=== PATIENT | female | born 1980 | race Caucasian/White ===

== ENCOUNTER → 2021-01-24 | Outpatient (CLI) | payer BC ==
[~2021-01-24] MED LIST: BCP TD; FOLIC ACID 11 MG/TA1 PO; IBU600 MG PO; LOVENOX 3030 MG/0.3 SQ; MOTRIN 600600 MG/TAB PO; NO HOME MEDICATIONS; PERCOCET 325 MG1 TA2 PO; PRENATAL VITAMI1 TAB PO; PRENATAL1 TA7 PO; SENOKOT S 50 MG1 TAB PO; VALIUM5 MG PO
== END ==
LOC: MC.RAD 10:58
DX: N63.20 Unspecified lump in the left breast, unspecified quadrant (principal)

== ENCOUNTER → 2023-05-30 | Outpatient (CLI) | payer BC | LOC: MC.RAD 11:25 | DX: Z12.31 Encounter for screening mammogram for malignant neoplasm of breast (principal) ==